=== PATIENT | female | born 1945 | race Caucasian/White ===

== ENCOUNTER → 2020-11-23 11:56 | Outpatient (CLI) | payer MEDICARE, OTHER, SELFPAY ==
[2020-11-23 14:10] LABS: COVID19 -Nasal RAPID Negative (Negative)
== END ==
PROVIDERS: PCP Family Medicine; Visit Provider Nurse Practitioner
DX: Z01.812 Encounter for preprocedural laboratory examination (principal); Z20.822 Contact with and (suspected) exposure to COVID-19
CPT/HCPCS: 87635; C9803

== ENCOUNTER 2020-11-27 09:01 | Inpatient (IN) | payer MEDICARE, OTHER, SELFPAY ==
[2020-11-20 10:23] VITALS: BMI 20.1
[2020-11-26] VITALS (16 sets, daily range): BP systolic 103–144; BP diastolic 55–87; PULSE 77–98; RESP 9–25; TEMP 36.1–36.6; O2SAT 2–100; BMI 20.1
--- NOTE | 2020-11-26 09:11 | DI.RAD.S_ITS ---
PROCEDURE: XR KNEE RT 1TO2V INDICATIONS: postop prosthesis placement TECHNIQUE: 2 view(s) of the knee acquired. COMPARISON: None. FINDINGS: Bones: Patient is status post knee joint arthroplasty. Hardware components are in expected positions. Visualized bony structures are intact. Soft tissues: Overlying postoperative changes are noted. IMPRESSION: Postop changes from right total knee arthroplasty with anatomic right knee alignment. Dictated by: Devon Albert M.D. on 11/26/2020 at 15:11 Approved by: Devon Albert M.D. on 11/26/2020 at 15:11
[2020-11-26] MEDS: CELECOXIB 200 MG CAPSULE PO (10:00)
[2020-11-26] MEDS: PREGABALIN 75 MG CAPSULE PO (10:00)
[2020-11-26] MEDS: ACETAMINOPHEN 325 MG TABLET 975 MG PO (10:01)
--- NOTE | 2020-11-26 10:09 | PM.PREOP ---
Pre-operative Note COVID-19 COVID-19 status: Negative Result date/Date tested (Pos, Neg/Pending): 11/23/20 Interval Note History & Physical reviewed/Exam performed by Physician: Yes Changes to H&P: No
[2020-11-26] MEDS: LACTATED RINGERS 1,000 ML 42 ML IV ×2 (10:17→11:49)
--- NOTE | 2020-11-26 10:17 | PM.OP.1 ---
Operative Date/Time/Diagnoses Date of procedure: 11/26/20 Time of procedure: 12:16 Pre-op diagnosis: Right knee osteoarthritis Post-op diagnosis: same Procedure & Clinicians Procedure: Right total knee replacement Same procedure as scheduled: Yes Indications: The patient has had progressively worsening right knee pain with radiographic changes consistent with arthritis. Non-operative management has failed and the patient has requested total knee replacement. The risks, benefits and alternatives to surgery were discussed with the patient prior to proceeding. Risks discussed included, but were not limited to, failure to relieve pain, stiffness, infection, nerve damage, deep venous thrombosis, pulmonary embolism, stroke, coma, heart attack, permanent paralysis and , as well as the potential need for eventual revision of the prosthetic. Surgeon: Kayden Land Stroke Coordinator: Young Shipley Click Yes if Unassisted: No Anesthesia Type: General, Spinal and Local Operative Notes Closure Type: primary Specimen(s): none sent Prosthetic devices, grafts, tissues, transplants, or devices: Implants used in this procedure were manufactured by the [employer] and [employer] and included the BCS II Journey total knee replacement with a size 4 right cobalt chromium femur, a size 3 right non porous tibial base plate, a 10 mm cross-linked polyethylene insert and a 32 mm oval Shirley II patellar component. Applied: implant(s) Estimated Blood Loss (mL): 25 Blood products transfused: none Tourniquet time (min): 46 Procedure in detail: The patient was seen in the pre-operative area, where the patient identified the right knee as the operative site and this was marked with my initials. The patient received pre-operative antibiotics, and was taken to the operating room and placed on the operative table in the supine position. After satisfactory anesthesia, a multimedia instructional designer out was performed. The right leg was encircled with a tourniquet about the proximal thigh, and the leg was prepared from the toes to the tourniquet with ChloraPrep in the usual fashion and draped through sterile drapes. The leg was elevated and exsanguinated with Eschmark bandage and the tourniquet inflated to 250 mmHg pressure. The knee was approached through an approximately 18 cm incision centered over the patella and carried into the knee through a medial parapatellar arthrotomy. The anterior osteophytes and soft tissues were removed. The rotational landmarks of Riverside's line and the transepicondylar axis were marked on the femur with electrocautery, and intramedullary guide holes for the femur and tibia were created. The distal femoral cut was made in 6 degrees of valgus using the intramedullary guide at the primary cut setting. The proximal tibial cut was then made using the intramedullary guide, taking 9 mm of bone off the less involved side. The extension gap was checked and the rotation of the femoral component confirmed with the gap balancing system. The anterior, posterior and chamfer cuts were then made. The posterior osteophytes and soft tissues were then removed. The posterior capsule was injected with part of a mixture of 60 ml 0.25% Marcaine mixed with 20 ml Exparel and 4 mg of morphine for post-operative pain control. The remainder of this mixture was injected into the capsule and subcutaneous tissues during cement curing. The tibia was prepared with the rotation set by an extra medullary guide. Trial tibial and femoral components were then placed and the intercondylar notch cut through the femoral trial. Range of motion was 0-135 degrees, with good stability throughout the range. The patella was then cut to accommodate the patellar prosthetic. There was no need for a lateral release. The trials were then removed, and the femoral hole plugged with a bone plug. The bone was prepared with pulsatile lavage, and dried with a sponge. Cement was applied and the final prosthetics placed. Excess cement was removed during and after cement curing. After confirming there was no extruded cement posteriorly, the final tibial insert was placed. The knee was copiously irrigated and the tourniquet deflated. Hemostasis was obtained. The capsule was closed with interrupted # 2 polyester suture. The subcutaneous layer was closed with 3-0 Vicryl, and the skin with a running 3-0 V-Lock suture and SteriStrips. An Aquacel Ag dressing was applied and the patient was taken to recovery having tolerated the procedure well. Complications: none Post-operative Condition: stable Disposition: PACU Plan for aftercare: The patient will be maintained on a standard total knee replacement protocol with weight bearing as tolerated. The patient will receive aspirin and sequential compression devices for DVT prophylaxis. The patient will be discharged home when safe for the home environment.
[2020-11-26] MEDS: CEFAZOLIN 1 GM VIAL 2 GM IV (10:45)
[2020-11-26] MEDS: TRANEXAMIC ACID 1,000 MG VIAL 1000 MG INJ (10:49)
--- NOTE | 2020-11-26 10:59 | SUR.OPER ---
Supine on padded OR bed. Pillow under head, arms secured on padded armboards <90 degree abduction. Safety belt across torso. Non-operative leg secured with tape over blanket over lower leg. Operative leg secured in DeMayo/Andi/Nathe positioner.
--- NOTE | 2020-11-26 11:01 | PC.NURSE ---
Day shift: Pt not on AC unit at this time.
[2020-11-26] MEDS: BUPIVACAINE LIPOSOME 266 MG/20 ML VIAL INJ (11:10)
[2020-11-26] MEDS: MORPHINE 4 MG/ML INJ INJ (11:11)
[2020-11-26] MEDS: EPINEPHrine 1 MG/ML 0.3 MG INJ (11:13)
[2020-11-26] MEDS: BUPIVACAINE 0.25% (PF) VIAL 60 ML INJ (11:14)
[2020-11-26] MEDS: fentaNYL 100 MCG/2 ML INJ IV ×2 (12:32→12:38)
[2020-11-26] MEDS: LORazepam 2 MG/ML INJ 0.25 MG IV (12:42)
[2020-11-26] MEDS: HYDROMORPHONE 2 MG INJ IV ×4 (12:46→13:12)
[2020-11-26] MEDS: OXYCODONE/ACETAMINOPHEN 5/325 TABLET 1 TAB PO (13:19)
--- NOTE | 2020-11-26 14:18 | SUR.PHASEI ---
1400 patient soon after surgery was done was writhing and crying in pain. very uncomfortable and uneasy. Given ativan, fentanyl, dilaudid and percocet. It helped with the pain, but still ststed until the end she felt achy and uneasy. VSS and circulation good. Taken to the floor
[2020-11-26] MEDS: LACTATED RINGERS 1,000 ML 100 ML IV (14:27)
[2020-11-26] MEDS: ATORVASTATIN 20 MG TABLET 80 MG PO (21:04)
[2020-11-26] MEDS: METFORMIN XR 500 MG TABLET 750 MG PO (21:04)
[2020-11-26] MEDS: DOCUSATE 100 MG CAPSULE PO (21:06)
[2020-11-26] MEDS: ASPIRIN EC 81 MG TABLET PO (21:06)
[2020-11-26] MEDS: ACETAMINOPHEN 325 MG TABLET 650 MG PO (21:07)
[2020-11-26] MEDS: OXYCODONE IR 5 MG TABLET PO ×2 (21:09→23:55)
[2020-11-27] VITALS (7 sets, daily range): BP systolic 111–135; BP diastolic 65–73; PULSE 79–96; RESP 13–18; TEMP 36.2–36.6; O2SAT 93–99
[2020-11-27] MEDS: HYDROMORPHONE 0.5 MG INJ 0.2 MG IV (01:29)
[2020-11-27] MEDS: OXYCODONE IR 10 MG TABLET PO (03:13)
[2020-11-27] MEDS: ZOLPIDEM 5 MG TABLET 10 MG PO ×2 (03:16→21:07)
[2020-11-27 08:06] LABS: Hemoglobin 12.3 g/dL (12.0-16.0)
--- NOTE | 2020-11-27 09:02 | PM.PNPO.1 ---
Subjective Subjective Date Patient Seen: 11/27/20 Time Patient Seen: 09:02 Interval history: The patient is somewhat confused this morning intermittently forgetting whether she has had surgery. She is concerned about going home due to her sister having pneumonia and her son recently being diagnosed with cancer. The 2 of them were supposed to help her in her postoperative recovery. Exam Vital Signs (past 8 hours): - 11/27/20 03:36 11/27/20 07:40 11/27/20 08:10 Temperature 97.1 F L 97.2 F L Pulse Rate 79 80 88 Respiratory Rate 18 18 16 Blood Pressure 111/73 130/67 Pulse Oximetry 97 93 97 Oxygen Delivery Method Room Air Oxygen Flow Rate 0 Narrative Exam Narrative: Right knee wound is dressed with no drainage on the bandage. Calf is soft. Light touch and motion are intact in the right lower extremity. Objective Labs Result Diagrams: 11/27/20 07:25 Labs: Laboratory Results - last 24 hr 11/27/20 07:25 Hgb 12.3 Hct 37.0 PFSH Medical History (Updated 11/20/20 @ 11:17 by Justine Ariza RN) Acid reflux Anxiety Arthritis Diabetes Dislocation of right shoulder joint Easy bruisability HLD (hyperlipidemia) HTN (hypertension) Hypothyroid Osteoarthritis Thin skin Surgical History (Updated 11/20/20 @ 11:17 by Justine Ariza RN) History of bladder surgery History of hysterectomy History of lumbar fusion History of surgery (~2005) Hx of bilateral cataract extraction Hx of cholecystectomy Hx of fusion of cervical spine Hx of heart artery stent (~2010) Hx of repair of right rotator cuff Hx of tonsillectomy S/P epidural steroid injection Social History household members: spouse and children Smoking Status: Never smoker alcohol intake: current Assessment & Plan Post-op Postoperative Procedures: Procedures Operation Date: 11/26/20 11:15 Actual Procedure Side Surgeon p Total Knee Arthroplasty Right Kayden Land MD Postoperative day: 1 Postoperative status: doing well and other (Confusion postoperatively) Postoperative status narrative: She is stable postoperatively from the standpoint of surgery. She does have confusion this morning. Postoperative plan: routine post-op care and ambulate Postoperative plan narrative: We will admit her as an inpatient formally. We will monitor her mental status. We will have her see Physical therapy today and tomorrow morning and potentially she will be able to be discharged tomorrow. Time Spent With Patient Time with patient: less than 15 minutes
[2020-11-27] MEDS: LORazepam 1 MG TABLET PO (09:10)
[2020-11-27] MEDS: METFORMIN XR 500 MG TABLET 750 MG PO ×2 (09:10→21:05)
[2020-11-27] MEDS: LEVOTHYROXINE 75 MCG TABLET PO (09:10)
[2020-11-27] MEDS: ASPIRIN EC 81 MG TABLET PO ×2 (09:10→21:05)
[2020-11-27] MEDS: DOCUSATE 100 MG CAPSULE PO ×2 (09:11→21:06)
[2020-11-27] MEDS: lisinopriL 20 MG TABLET PO (09:11)
[2020-11-27] MEDS: ACETAMINOPHEN 325 MG TABLET 650 MG PO ×3 (09:11→21:04)
--- NOTE | 2020-11-27 09:20 | PT.IIE ---
Current Diagnoses Unilateral primary osteoarthritis, right knee (11/26/20) Surgery Performed Operation Date: 11/26/20 11:15 Actual Procedures p Total Knee Arthroplasty(Right) - Kayden Land MD Medical History (Last Updated 11/20/20 @ 11:17 by Justine Ariza RN) Acid reflux Anxiety Arthritis Diabetes Dislocation of right shoulder joint Easy bruisability HLD (hyperlipidemia) HTN (hypertension) Hypothyroid Osteoarthritis Thin skin Physical Therapy Inpatient Evaluation/Re-Eval M1 PT/OT-IP Prior Functional Status Start: 11/27/20 11:59 Freq: NEEDED Status: Active Protocol: Document 11/27/20 09:20 AB (Rec: 11/27/20 12:41 AB [id number]) Medical Review Prior Functional Status Medical History Reviewed Yes Communication able to make needs known; with confusion Mobility and Gait pt stated that she is modified independent with all mobilities and ambulation without AD Social History Household Members spouse,children Living Arrangements House Number of Floors (Floors) One Floor Number of Stairs To Enter/Railing? ramp to enter Home Environment High Toilet,Tub/Shower Home Equipment Front Wheel Walker,Tub Transfer Bench,Hand Held Shower,Grab Bars Near Toilet Employment Status Retired M2 PT-IP Current Condition Start: 11/27/20 11:59 Freq: NEEDED Status: Active Protocol: Document 11/27/20 09:20 AB (Rec: 11/27/20 12:41 AB [id number]) Physical Therapy Current Condition Current Condition Evaluation Date 11/27/20 Treatment Diagnosis s/p R TKA; difficulty in walking Onset Date 11/26/20 Precautions Other Precautions falls Weight Bearing Status Weight Bearing Status Weight Bear as Tolerated Allowed Weight Bearing Amount (enter % RLE WBAT or #) (%) M3 PT-IP Subjective Start: 11/27/20 11:59 Freq: NEEDED Status: Active Protocol: Document 11/27/20 09:20 AB (Rec: 11/27/20 12:41 AB [id number]) Subjective Physical Therapy Visit Type Type Initial Evaluation Visit Start Time 09:20 Visit Stop Time 10:05 Total Visit Minutes 45 Number of SNOW REMOVAL/PLOWING Visits 0 Physical Therapy Visit Comments Patient Comments requesting to use the toilet Therapy Pain Assessment Pain When Pain Assessed During Mobility Location Right Knee Scale Used pain scale nto stated Pain Behaviors Guarding,Holding Area M4 PT-IP Mobility and Gait Start: 11/27/20 11:59 Freq: NEEDED Status: Active Protocol: Document 11/27/20 09:20 AB (Rec: 11/27/20 12:41 AB [email or web address]) PT-Bed Mobility Assessment Supine to Sit Supine to Sit Standby Assistance Sit to Supine Sit to Supine Standby Assistance PT-Transfer Assessment Sit to and From Stand Sit to and from Stand Contact Guard Assistance,1 Person Assistance,Use of Upper Extremities Equipment Transfer Assistive Device Gait Belt,Front Wheeled Walker Orthotic/Prosthetic Devices or Brace: No Transfers Transfer Destination Toilet Transfer Technique ambulated using FWW Transfer Ability Level of Assist Contact Guard Assistance,Use of Upper Extremities Comments Mobility Comments pt midway off bed and stated that she needs to use the toilet. completed sit to stand CGA and ambulated to the toilet with min A and cues using fWW. pt with confusion and can be impulsive. initially has RLE off the floor and was hoping during ambulation. pt educated on safety and weight bearing on RLE. pt completed sit to stand from the toilet CGA and ambulated to the sink using FWW CGA. pt was able to maintain standing CGA and cues while completing handwashing. ambulated to the chair. pt agreed to ambulate more in the hallway. completed sit to stand from the chair SBA and ambulated in the hallway using FWW 100 ft SBA to occasionally CGA for safety and cues. pt requested to go back to bed. completed sit to supine SBA. positioned pt on the bed. call light and table placed within reach. Gait Assessment Gait Gait Assistance Required: Standby Assistance,Contact Guard Assist,Minimum Assistance Distance (Feet) 100 Able to Maintain Weight Bearing Status Yes During Gait Assistive Devices Assistive Device Gait Belt,Front Wheeled Walker Orthotic/Prosthetic Devices or Brace: No Gait Deviations General Gait Pattern Antalgic,Decreased Stride Length,Decreased Feet Clearance,Step-to Gait Factors Limiting Gait Function Factors Limiting Gait Function Decreased Activity Tolerance, Decreased Strength,Difficulty Following Directions,Limited Range of Motion,Pain,Poor Balance,Poor Safety Awareness Comments Gait Comments pls refer to mobility section for details PT-Balance Assessment Sitting Balance and Reactions Static Sitting Balance Ability Good Dynamic Sitting Balance Ability Good Standing Balance and Reactions Static Standing Balance Ability Fair Dynamic Standing Balance Ability Fair Device Used FWW M5 PT-IP Objective Assessments Start: 11/27/20 11:59 Freq: NEEDED Status: Active Protocol: Document 11/27/20 09:20 AB (Rec: 11/27/20 12:41 AB [id number]) Orientation Orientation/Cognition Level of Alertness Confusional State Orientation Name,Situation Safety Awareness Decreased Safety Awareness Gross Range of Motion Lower Extremity ROM Assessment Right Impaired Impairments R knee flexion: ~ 90 deg Strength Lower Extremity Strength Assessment Right Impaired Hip 4-/5 Knee 3+/5 Sensation Assessment Sensation Gross Sensation WNL Muscle Tone Muscle Tone WNL Yes M6 PT-IP Treatment Start: 11/27/20 11:59 Freq: NEEDED Status: Active Protocol: Document 11/27/20 09:20 AB (Rec: 11/27/20 12:41 AB [id number]) Physical Therapy Treatment Education Education Provided Precautions,Weight Bearing Status,Post-Op Packet,Safety M7 PT-IP Assessment and Plan Start: 11/27/20 11:59 Freq: NEEDED Status: Active Protocol: Document 11/27/20 09:20 AB (Rec: 11/27/20 12:41 AB [email or web address]) PT Summary Assessment and Plan Potential Rehabilitation Potential Good Status of Condition at Evaluation Stable Summary Impairments Pain,ROM,Strength,Balance, Coordination,Sensation,Tone, Cognition,Bed Mobility, Transfers,Gait,Activity Tolerance Assessment Summary pt requiring SBA to CGA with mobility using FWW and plans to go home wtih spouse to assist her. will continue to assess progress. pt stated that she has outpt PT scheduled. Goals Bed Mobility Goal Independent Transfer Goal Independent,Front Wheeled Walker Gait Goal Independent,Front Wheel Walker Gait Distance 200 Days to Meet Goals 5 Frequency of Treatment Frequency Of Treatment Twice a Day Treatment Plan Physical Therapy Treatment Plan Bed Mobility Training,Transfer Training,Gait Training, Therapeutic Exercise,Balance Retraining,Post Op Education, Discharge Planning,Hot or Cold Pack,Neuromuscular Re-ed, Coordination Retraining,Manual Therapy Other Recommendations and Next Treatment ambulation Focus Precautions Other Precautions falls; RLE WBAT Recommendations To Nursing Amount of Assist Needed 1 Person Assist Discharge Recommendations PT Discharge Recommendations Home with Assistance, Outpatient PT Transportation Needs at Discharge Private Vehicle
--- NOTE | 2020-11-27 09:42 | PC.NURSE ---
Day shift: Per Dr Land Pt given Ativan PO per APR with her AM meds. Pt having anxiety this AM and confused about the specifics of her surgery yesterday. She stated The Dr said my surgery was going to be today. This was said after Dr Land talked w/ Pt this AM. This financial writer discussed with Dr Land that Pt may need CIWA protocol put in place but not at this time. Will continue to monitor Pt and call Dr Land if CIWA is needed. Pt OOB w/ PT at this time and will be sitting in chair w/ chair alarm in place. Call light in reach.
[2020-11-27] MEDS: CELECOXIB 200 MG CAPSULE PO (10:44)
--- NOTE | 2020-11-27 14:46 | PT.IPTN ---
Current Diagnoses Unilateral primary osteoarthritis, right knee (11/27/20) Surgery Performed Operation Date: 11/26/20 11:15 Actual Procedures p Total Knee Arthroplasty(Right) - Kayden Land MD Physical Therapy Treatment Note M2 PT-IP Current Condition Start: 11/27/20 11:59 Freq: NEEDED Status: Active Protocol: Document 11/27/20 09:20 AB (Rec: 11/27/20 12:41 AB [id number]) Physical Therapy Current Condition Current Condition Evaluation Date 11/27/20 Treatment Diagnosis s/p R TKA; difficulty in walking Onset Date 11/26/20 Precautions Other Precautions falls Weight Bearing Status Weight Bearing Status Weight Bear as Tolerated Allowed Weight Bearing Amount (enter % RLE WBAT or #) (%) M3 PT-IP Subjective Start: 11/27/20 11:59 Freq: NEEDED Status: Active Protocol: Document 11/27/20 14:16 KS (Rec: 11/27/20 15:54 KS [id number]) Subjective Physical Therapy Visit Type Type Treatment Note Visit Start Time 14:16 Visit Stop Time 14:46 Total Visit Minutes 30 Number of MATERIALS ASSISTANT Visits 1 Physical Therapy Visit Comments Patient Comments Pt agreeable to PT M4 PT-IP Mobility and Gait Start: 11/27/20 11:59 Freq: NEEDED Status: Active Protocol: Document 11/27/20 14:16 KS (Rec: 11/27/20 15:54 KS [id number]) PT-Bed Mobility Assessment Supine to Sit Supine to Sit Standby Assistance Sit to Supine Sit to Supine Standby Assistance PT-Transfer Assessment Sit to and From Stand Sit to and from Stand Contact Guard Assistance,1 Person Assistance,Use of Upper Extremities Equipment Transfer Assistive Device Gait Belt,Front Wheeled Walker Orthotic/Prosthetic Devices or Brace: No Transfers Transfer Destination Toilet Transfer Technique ambulated using FWW Transfer Ability Level of Assist Contact Guard Assistance,Use of Upper Extremities Comments Mobility Comments Pt in bed upon arrival from therapy. Pt instructed and completed 1x10 bilateral LE excercises including ankle pumps, quad sets, glute sets and 1x5 heel slides and SLR. Pt then sup<>sit and scooted EOB SBA. CGA for sit<>stand w/ FWW. Pt then ambulated ~30 ft in hallway w/ FWW and CGA. Pt c/o fatigue and increased pain and requested to go back to room. Pt ambulated w/ decreased stride and foot clearance and step to pattern due to pain. After sitting in bed, pt requested to use toilet. CGA for sit<>stand and ~15ft ambulation to toilet. CGA for stand<>sit<>stand from toilet w/ use of grab bar. Pt ambulated ~15 ft back to bed w/ FWW and stand<>sit<>sup SBA . Pt left in bed w/ ice applied, SCDs on, bed alarm on , and all needs in reach. Gait Assessment Gait Gait Assistance Required: Standby Assistance,Contact Guard Assist,Minimum Assistance Distance (Feet) 60 Able to Maintain Weight Bearing Status Yes During Gait Assistive Devices Assistive Device Gait Belt,Front Wheeled Walker Orthotic/Prosthetic Devices or Brace: No Gait Deviations General Gait Pattern Antalgic,Decreased Stride Length,Decreased Feet Clearance,Step-to Gait Factors Limiting Gait Function Factors Limiting Gait Function Decreased Activity Tolerance, Decreased Strength,Difficulty Following Directions,Limited Range of Motion,Pain,Poor Balance,Poor Safety Awareness Comments Gait Comments pls refer to mobility section for details PT-Balance Assessment Sitting Balance and Reactions Static Sitting Balance Ability Good Dynamic Sitting Balance Ability Good Standing Balance and Reactions Static Standing Balance Ability Fair Dynamic Standing Balance Ability Fair Device Used FWW M5 PT-IP Objective Assessments Start: 11/27/20 11:59 Freq: NEEDED Status: Active Protocol: Document 11/27/20 09:20 AB (Rec: 11/27/20 12:41 AB [id number]) Orientation Orientation/Cognition Level of Alertness Confusional State Orientation Name,Situation Safety Awareness Decreased Safety Awareness Gross Range of Motion Lower Extremity ROM Assessment Right Impaired Impairments R knee flexion: ~ 90 deg Strength Lower Extremity Strength Assessment Right Impaired Hip 4-/5 Knee 3+/5 Sensation Assessment Sensation Gross Sensation WNL Muscle Tone Muscle Tone WNL Yes M6 PT-IP Treatment Start: 11/27/20 11:59 Freq: NEEDED Status: Active Protocol: Document 11/27/20 14:16 KS (Rec: 11/27/20 15:54 KS [id number]) Physical Therapy Treatment Exercises Exercises Ankle Pumps,Gluteal Sets,Quad Sets,Heel Slides,Straight Leg Raises Education Education Provided Precautions,Weight Bearing Status,Post-Op Packet,Safety M7 PT-IP Assessment and Plan Start: 11/27/20 11:59 Freq: NEEDED Status: Active Protocol: Document 11/27/20 14:16 KS (Rec: 11/27/20 15:54 KS [id number]) PT Summary Assessment and Plan Potential Rehabilitation Potential Good Status of Condition at Evaluation Stable Summary Impairments Pain,ROM,Strength,Balance, Coordination,Sensation,Tone, Cognition,Bed Mobility, Transfers,Gait,Activity Tolerance Assessment Summary Pt continues to require SBA to CGA for all mobility, transfers, and ambulation. Able to tolerate LE strengthening exercises well. Demonstrated safe use of FWW. Will benefit from continued skilled therapy to improve tolerance for activity and gait. Goals Bed Mobility Goal Independent Transfer Goal Independent,Front Wheeled Walker Gait Goal Independent,Front Wheel Walker Gait Distance 200 Days to Meet Goals 5 Frequency of Treatment Frequency Of Treatment Twice a Day Treatment Plan Physical Therapy Treatment Plan Bed Mobility Training,Transfer Training,Gait Training, Therapeutic Exercise,Balance Retraining,Post Op Education, Discharge Planning,Hot or Cold Pack,Neuromuscular Re-ed, Coordination Retraining,Manual Therapy Other Recommendations and Next Treatment ambulation Focus Precautions Other Precautions falls; RLE WBAT Recommendations To Nursing Amount of Assist Needed 1 Person Assist Discharge Recommendations PT Discharge Recommendations Home with Assistance, Outpatient PT Transportation Needs at Discharge Private Vehicle
--- NOTE | 2020-11-27 16:09 | CM.DANOTE ---
DCP/Assessment: Reviewed chart. Patient is a 75yr old female admitted to [facility] for elective right TKA performed on 11-26-[address] Land. PCP listed is Fareed Stoenr. Primary payor is 1)Medicare 2)[facility]. Met with patient explained CM/SW role. Patient reports that she hopes to d/c home tomorrow. Patient indicates that she has all needed DME and outpatient therapy is arranged. P: Home when stable. JENAE Granda Discharge Planning/Care Management CM Discharge Assessment Start: 11/27/20 16:06 Freq: Status: Active Protocol: Document 11/27/20 16:06 KJS (Rec: 11/27/20 16:09 KJS [id number]) Discharge Planning Assessment Assigned Manpower Development Specialist Manager JENAE Granda Contact Information Chetan Ring (spouse) # [phone] Advance Directives? No History Provided By Patient,Medical Record Prior Living Arrangements House Household Members spouse,children Type of transporation used prior to Drives own vehicle admit Independent with ADL's Yes Is patient alert and oriented? Yes Caregiver for Another No DME Already Rented / Owned Bath Bench,FWW / Walker,Cane Barriers to Discharge No Discharge Plan Home Transportation Arrangement Family to provide transport. Referrals Initiated None needed Whiteboard Updated in Patient Room with Yes name and ext. # of Manpower Development Specialist Manager Review Status In Process Next Review Type Continued Stay Review Pre-Anesthesia Assessment Start: 11/20/20 10:23 Freq: Status: Complete Protocol: Document 11/20/20 10:23 CAB (Rec: 11/20/20 11:33 CAB [id number]) Pre-Anesthesia Assessment Preferred Name Luis Patient Information Reviewed Via Phone Assessment Assessment Completed With Patient Comment Labs done per pt, not here, EKG 11/21/20, COVID screen @ [facility] 11/23/20 Primary Care Provider Fareed Stoner Medical Clearance Received Yes Seen Specialist in Last 12 Months Yes Specialist Seen Orthopedist Comment PCP clearance scanned Primary Language Vietnamese Gift Manager Required No Height 167.64 cm Weight 56.699 kg Body Mass Index (BMI) 20.1 Hearing Ability Normal Visual Assist None Dentition Type Teeth, Missing,Full- Upper Barriers to Learning None Hx Anesthesia Reactions Yes: It takes me a while to get into, they have to give me more Hx Family Anesthesia Reaction No Hx Malignant Hyperthermia No Hx Blood Transfusions No Anesthesia Review Requested No alcohol intake current alcohol intake frequency a few times a month Smoking Status Never smoker Substance Use Type does not use Pain Present Pain Reported Musculoskeletal Symptoms Abnormal Gait,Back Pain, Difficulty Walking,Joint Pain History of Falling (Recent or History of Yes ) Patient is completely paralyzed or No completely immobile Mental Status Oriented to own ability Is patient on oxygen? No Does patient have PEREZ/SOB No Hx Sleep Apnea No Currently Taking a Beta Veda No Can You Climb a Flight of Stairs Without Yes SOB Hx Chest Pain No Hx SOB No Anti-Coagulant Therapy No Has a Dry Food Products Mixer No Cardiac Testing No Hx Pacemaker/ICD No Pacemaker Rep Required? No Diet Type At Home Regular dysphagia No Gastrointestinal Symptoms Reflux Urinary Catheter Present No Hx Urinary Self Catheterization No Diabetes Yes: Pt checks blood sugar twice a day Patient No Lactating No Presence of External or Internal Medical Yes: Cheek, cervical/lumbar, Devices bilat IOLs, cardiac stent Have you had any close contact with No someone diagnosed with COVID-19? Received a COVID vaccine? Yes: Moderna Received all doses? Yes Marital Status Lives With spouse,children Prior Living Arrangements House Support System Family,Spouse Does the Patient Have Assistance After Yes Surgery Patient Discharge Plan Description Return Home Comment Pt advised overnight length of stay per surgeon Feels Safe in Current Environment Yes Been Physically Hurt or Threatened By a No Person in Current Environment Do you have thoughts of harming yourself None or others? Are you currently considering suicide? No Do you have a plan to hurt yourself or No Plan others? Do You Have Any Spiritual Beliefs That No May Affect Your HC Choices? Do You Have Any Cultural Practices That No May Affect Your HC Choices? Comment Scientology Who Can We Speak to About Patient's Care Family, friends Identifying Code for Release of Patient Declines to issue Information Health Care Proxy/Next of Kin Chetan () Health Care Proxy Emergency Contact Name Chetan () Emergency Contact Advance Directives? No Power of Senior Software Engineer Analytics Yes Power of Senior Software Engineer Analytics Name Chetan () Power of Senior Software Engineer Analytics PAC Instructions Diabetes instructions,Do not shave/clip surgical site, Durable medical equipment, Medications to take/avoid, Nasal antibiotic,No ETOH/ petroleum product on skin DOS, NPO,Post-op transportation,Pre -surgical wash,Sturdy shoes/ comfortable clothes,Do not bring valuables and remove jewelry
[2020-11-27] MEDS: OXYCODONE IR 5 MG TABLET PO (16:14)
--- NOTE | 2020-11-27 16:54 | PC.NURSE ---
Addendum entered by Ophelia Rose R.N. 11/27/20 22:06: Pt rested this evening, appears in better spirits' SpO2 95% RA HL intact/patent CBG 258 & 291, pt takes metformin at HS . Satisfactory post op course. Call light w/in reach, bed alarm on for pt safety. Continue w/plan of care. Original Note: Pt appears uncomfortable, med w/po meds for discomfort. Eddie wrap tight & bunched up, eddie reovoved, Aquacell dsg CDI SpO2 97% RA HL right wrist intact/patent. Assisted to BSC Call light w/in reach, bed alarm on for pt safety.
[2020-11-27] MEDS: ATORVASTATIN 20 MG TABLET 80 MG PO (21:06)
[2020-11-28 00:49] VITALS: BP 162/88; PULSE 94; RESP 18; TEMP 36.3; O2SAT 98
[2020-11-28] MEDS: OXYCODONE IR 10 MG TABLET PO (01:19)
[2020-11-28] MEDS: OXYCODONE IR 5 MG TABLET PO ×2 (03:39→11:50)
[2020-11-28] MEDS: HYDROMORPHONE 2 MG TABLET PO (04:21)
[2020-11-28] MEDS: HYDROMORPHONE 0.5 MG INJ 0.2 MG IV (06:01)
[2020-11-28] MEDS: LEVOTHYROXINE 75 MCG TABLET PO (06:02)
[2020-11-28 06:04] VITALS: BP 150/72; PULSE 89; RESP 17; TEMP 36.8; O2SAT 98
[2020-11-28 07:18] VITALS: BP 141/76; PULSE 89; RESP 16; TEMP 36.3; O2SAT 97
--- NOTE | 2020-11-28 07:21 | PM.DS.1 ---
History of Present Illness History of Present Illness Date Patient Seen: 11/28/20 Time Patient Seen: 07:21 Chief complaint: RT TKA *OPB* Narrative: History and physical is contained in the chart previously completed note. Please refer to that note for this information. Discharge Providers Provider Date of admission: 11/27/20 09:01 Discharge Date: 11/28/20 Primary care physician: Fareed Stoner MD Consults: 11/26/20 14:00 Consult to Discharge Planning Routine Comment: Consult to Physical Therapy Evaluate & Treat Comment: Physician Instructions: postop TKA protocol 11/26/20 14:38 Consult to Respiratory Therapy Evaluate & Treat Comment: Physician Instructions: Evaluate and treat Discharge provider: Kayden Land MD Summary Hospital Course Discharge Diagnosis: 1. Right knee osteoarthritis 2. Postoperative delirium Hospital Course: The patient was admitted to the hospital and taken directly to the operating room on November 26, 2020 where she underwent a right total knee replacement without complication. On postoperative day 1 she was moderately confused, forgetting that she had had surgery the day before. She was observed overnight and her mental status began to clear. On postoperative day 2 she had made some progress with physical therapy and at the time of this dictation the plan is she will be discharged after additional physical therapy later today. Status at Discharge Cognitive/behavioral status at discharge: at baseline, oriented Functional status at discharge: uses cane/walker Overall status at discharge: patient is progressing back to baseline Time Spent with Patient Time spent: Less than 30 minutes Exam Vital Signs (past 8 hours): - 11/28/20 00:49 11/28/20 06:04 Temperature 97.4 F L 98.3 F Pulse Rate 94 H 89 Respiratory Rate 18 17 Blood Pressure 162/88 H 150/72 H Pulse Oximetry 98 98 Oxygen Delivery Method Room Air Oxygen Flow Rate 0 Narrative Exam Narrative: Right knee wound is dressed with no drainage on the bandage. There is bruising surrounding the surgical incision as anticipated. Calf is soft. Light touch and motion are intact in the right lower extremity. Objective Labs Result Diagrams: 11/27/20 07:25 Labs: Laboratory Results - last 24 hr 11/27/20 07:25 Hgb 12.3 Hct 37.0 PFSH Medical History (Updated 11/20/20 @ 11:17 by Justine Ariza RN) Acid reflux Anxiety Arthritis Diabetes Dislocation of right shoulder joint Easy bruisability HLD (hyperlipidemia) HTN (hypertension) Hypothyroid Osteoarthritis Thin skin Surgical History (Updated 11/20/20 @ 11:17 by Justine Ariza RN) History of bladder surgery History of hysterectomy History of lumbar fusion History of surgery (~2005) Hx of bilateral cataract extraction Hx of cholecystectomy Hx of fusion of cervical spine Hx of heart artery stent (~2010) Hx of repair of right rotator cuff Hx of tonsillectomy S/P epidural steroid injection Social History household members: spouse and children Smoking Status: Never smoker alcohol intake: current Discharge Assessment & Plan Assessment and Plan Assessment: Stable postoperative day 2 status post right total knee replacement with clearing of temporary postoperative delirium. Plan of Treatment: Physical therapy today likely 2 sessions morning and afternoon then discharged to home. Follow-up in the office in 2 weeks. Discharge prescriptions for oxycodone have been sent to the pharmacy. She has also been instructed in the use of low-dose aspirin for DVT prophylaxis and Tylenol for pain relief. She is already on Celebrex at home for pain relief as well. Discharge Plan Discharge Plan Patient Disposition: Home Discharge orders & Medications Prescriptions: New acetaminophen 325 mg Tablet 650 mg PO TID 30 Days Qty: 180 RF: 0 aspirin 81 mg Tablet,Delayed Release (Dr/Ec) 81 mg PO BID 42 Days Qty: 84 RF: 0 oxycodone 5 mg Tablet 5 mg PO Q4H PRN (Reason: Pain, Moderate (4-6)) Qty: 40 RF: 0 Continued celecoxib [Celebrex] 200 mg Capsule 200 mg PO BID PRN (Reason: Pain) RF: 0 lisinopril 20 mg Tablet 20 mg PO DAILY RF: 0 levothyroxine 75 mcg Tablet 75 mcg PO DAILY RF: 0 glipizide 2.5 mg Tablet Extended Release 24hr 2.5 mg PO DAILY RF: 0 lorazepam 1 mg Tablet 1 mg PO DAILY PRN (Reason: Anxiety) RF: 0 zolpidem 10 mg Tablet 10 mg PO BEDTIME RF: 0 metformin 750 mg Tablet Extended Release 24 Hr 750 mg PO BID RF: 0 rosuvastatin 40 mg Tablet 40 mg PO DAILY RF: 0 nitrofurantoin 50 mg Capsule 50 mg PO 3XW RF: 0 Discontinued tramadol 50 mg Tablet 50 mg PO DAILY PRN (Reason: Pain) RF: 0 acetaminophen 500 mg Tablet 500 mg PO BID PRN (Reason: Pain) RF: 0 Follow up/Referrals: Shanda,Kayden M, MD [Physician] - 2 Weeks Fareed Stoner MD [Primary Care Provider] - Discharge Health Status Multidrug resistant organism: No MDRO Diet/Activity/Treatments Diet: Diet as Tolerated and Carb-consistent/Diabetic Activity: You may bear weight as tolerated on your right leg. Cold/Heat Therapy: You may apply ice for 15 minutes every hour to the right knee for pain relief. Skin/Wound/Dressing Care Report to your healthcare provider any signs of infection, such as:: chills, fever, night sweats, increased pain, unusual drainage and unusual redness Dressing: Leave the dressing intact until your postoperative follow-up. You may shower with the dressing in place. If the center strip of the dressing becomes saturated with either water or blood, please call the office to have it evaluated. Visit Report/Discharge Packet Instructions: DI for Knee Replacement, DI for Prescription Opioid Use Stand Alone Forms: Surgery Discharge Discharge Data Primary Care Provider: Fareed Stoner
[2020-11-28] MEDS: ACETAMINOPHEN 325 MG TABLET 650 MG PO (09:03)
[2020-11-28] MEDS: ASPIRIN EC 81 MG TABLET PO (09:03)
[2020-11-28] MEDS: lisinopriL 20 MG TABLET PO (09:03)
[2020-11-28] MEDS: DOCUSATE 100 MG CAPSULE PO (09:03)
[2020-11-28] MEDS: METFORMIN XR 500 MG TABLET 750 MG PO (09:23)
--- NOTE | 2020-11-28 11:14 | PT.IPTN ---
Current Diagnoses Unilateral primary osteoarthritis, right knee (11/27/20) Surgery Performed Operation Date: 11/26/20 11:15 Actual Procedures p Total Knee Arthroplasty(Right) - Kayden Land MD Physical Therapy Treatment Note M2 PT-IP Current Condition Start: 11/27/20 11:59 Freq: NEEDED Status: Discharge Protocol: Document 11/28/20 10:35 SP (Rec: 11/28/20 13:56 SP [id number]) Physical Therapy Current Condition Current Condition Evaluation Date 11/27/20 Treatment Diagnosis s/p R TKA; difficulty in walking Onset Date 11/26/20 Precautions Other Precautions falls; RLE WBAT Weight Bearing Status Weight Bearing Status Weight Bear as Tolerated Allowed Weight Bearing Amount (enter % RLE WBAT or #) (%) M3 PT-IP Subjective Start: 11/27/20 11:59 Freq: NEEDED Status: Discharge Protocol: Document 11/28/20 10:35 SP (Rec: 11/28/20 13:56 SP [id number]) Subjective Physical Therapy Visit Type Type Treatment Note Visit Start Time 10:35 Visit Stop Time 11:14 Total Visit Minutes 39 Notes completed caregiver training with assist required throughout tx. Number of CHIEF SUSTAINABILITY OFFICER Visits 2 Physical Therapy Visit Comments Patient Comments Pt agreeable to PT Patient Goals return home with spouse to assist Therapy Pain Assessment Pain When Pain Assessed During Mobility Pain Present Pain Present Pain Reported Location Right Knee Intensity 3 Scale Used Numeric (0 - 10) Pain Behaviors Facial Grimacing Pain Management Techniques Apply Cold,Distraction,Re- positioning,Timing of Activity with Medications M4 PT-IP Mobility and Gait Start: 11/27/20 11:59 Freq: NEEDED Status: Discharge Protocol: Document 11/28/20 10:35 SP (Rec: 11/28/20 13:56 SP [id number]) PT-Bed Mobility Assessment Supine to Sit Supine to Sit Standby Assistance Sit to Supine Sit to Supine Standby Assistance Scooting Scooting to Edge of Bed Standby Assistance PT-Transfer Assessment Sit to and From Stand Sit to and from Stand Contact Guard Assistance,1 Person Assistance,Use of Upper Extremities Equipment Transfer Assistive Device Gait Belt,Front Wheeled Walker Orthotic/Prosthetic Devices or Brace: No Transfers Transfer Destination Bed,Chair Transfer Technique ambulated using FWW Transfer Ability Level of Assist Contact Guard Assistance,1 Person Assistance,Use of Upper Extremities Comments Mobility Comments Pt seated in chair when arrived, education with on donning gait belt, sit>stand CGA with cues for proper hand placement push from chair and allowed WBAT, she demonstrates NWB- 25% initially into RLE standing and first few steps. Pt able to ambulate step to patterning further around room 30 ft CGA by and returned to L EOB, good side stepping EOB and reaching back slow descent to bed CGA, Sit<>supine SBA LLE hook under and support RLE during mobility, education on supine post- op LE exercises review w/ gait belt on RLE. SPT bed> chair CGA using fWW with improved hand placement with cue from . Pt is ok to return home with to asisst her 08/09 for safety reminders increase LE WB allowed, hand placement reminders. She is already set up with outpt ttherapy. Gait Assessment Gait Gait Assistance Required: Standby Assistance,Contact Guard Assist,Minimum Assistance Distance (Feet) 30 Able to Maintain Weight Bearing Status Yes During Gait Assistive Devices Assistive Device Gait Belt,Front Wheeled Walker Orthotic/Prosthetic Devices or Brace: No Gait Deviations General Gait Pattern Antalgic,Decreased Stride Length,Decreased Feet Clearance,Step-to Gait Factors Limiting Gait Function Factors Limiting Gait Function Decreased Activity Tolerance, Decreased Strength,Difficulty Following Directions,Limited Range of Motion,Pain,Poor Balance,Poor Safety Awareness Comments Gait Comments see mobility comments Stair Climbing Assessment Comments Stair Climbing Comments no stairs at home to assess. PT-Balance Assessment Sitting Balance and Reactions Static Sitting Balance Ability Good Dynamic Sitting Balance Ability Good Standing Balance and Reactions Static Standing Balance Ability Fair Dynamic Standing Balance Ability Fair Device Used FWW M5 PT-IP Objective Assessments Start: 11/27/20 11:59 Freq: NEEDED Status: Discharge Protocol: Document 11/27/20 09:20 AB (Rec: 11/27/20 12:41 AB [id number]) Orientation Orientation/Cognition Level of Alertness Confusional State Orientation Name,Situation Safety Awareness Decreased Safety Awareness Gross Range of Motion Lower Extremity ROM Assessment Right Impaired Impairments R knee flexion: ~ 90 deg Strength Lower Extremity Strength Assessment Right Impaired Hip 4-/5 Knee 3+/5 Sensation Assessment Sensation Gross Sensation WNL Muscle Tone Muscle Tone WNL Yes M6 PT-IP Treatment Start: 11/27/20 11:59 Freq: NEEDED Status: Discharge Protocol: Document 11/28/20 10:35 SP (Rec: 11/28/20 13:56 SP [id number]) Physical Therapy Treatment Exercises Exercises Ankle Pumps,Gluteal Sets,Quad Sets,Heel Slides,Short Arc Quads,Seated Knee Flexion/ Extension Knee ROM Measurement 10- 40 deg supine AAROM, 80 deg flexion seated in chair Education Education Provided Precautions,Weight Bearing Status,Post-Op Packet,Safety M7 PT-IP Assessment and Plan Start: 11/27/20 11:59 Freq: NEEDED Status: Discharge Protocol: Document 11/28/20 10:35 SP (Rec: 11/28/20 13:56 SP [id number]) PT Summary Assessment and Plan Potential Rehabilitation Potential Good Status of Condition at Evaluation Stable Summary Impairments Pain,ROM,Strength,Balance, Coordination,Sensation,Tone, Cognition,Bed Mobility, Transfers,Gait,Activity Tolerance Progress Towards Goals Progressing Toward Goals,Slow Progress due to Activity Tolerance Assessment Summary Pt continues to require CGA for all mobility, transfers, and ambulation in room distances using FWW with noted decreased RLE WB, improves with cuing allowed WBAT and safety reminders push from chair arms and reach back prior to sit for slow descent to chair, provided cue carryover. Able to tolerate LE strengthening exercises with assist therapist and use of gait belt on R foot. Demonstrated safe use of FWW. Pt is ok to return home with to assist her 08/09. Is set up with outpt therapy. Goals Bed Mobility Goal Independent Transfer Goal Independent,Front Wheeled Walker Gait Goal Independent,Front Wheel Walker Gait Distance 200 Days to Meet Goals 5 Frequency of Treatment Frequency Of Treatment Twice a Day Treatment Plan Physical Therapy Treatment Plan Bed Mobility Training,Transfer Training,Gait Training, Therapeutic Exercise,Balance Retraining,Post Op Education, Discharge Planning,Hot or Cold Pack,Neuromuscular Re-ed, Coordination Retraining,Manual Therapy Other Recommendations and Next Treatment gait, Le ex, safety techniques Focus during transfers, review WBAT RLE using fWW. Precautions Other Precautions falls; RLE WBAT Recommendations To Nursing Amount of Assist Needed 1 Person Assist Discharge Recommendations PT Discharge Recommendations Home with Assistance,Home with 08/09 Assist Available, Outpatient PT Transportation Needs at Discharge Private Vehicle
--- NOTE | 2020-11-28 13:31 | CM.DPC ---
DCP Discharge Home Per Ortho MD, pt is medically stable to d/c home today with no identified barriers to discharge. Per PT, pt doing very well and recommend safe d/c home with outpt PT and has DME needed. No identified barriers to discharge. Per RN, no concerns at this time and d/c instructions provided. Plan: Patient to d/c home via spouse POV and outpt PT and no SW needs at this time. JENAE Jenkins
== END 2020-11-28 12:00 | disposition home or self-care (01) | DRG 470 ==
LOC: OR 13:17 → AC 13:17
PROVIDERS: Admitting Provider Orthopaedic Surgery; PCP Family Medicine; Referring Provider Orthopaedic Surgery; Visit Provider Orthopaedic Surgery
PROC: 0SRC0JZ Replacement of Right Knee Joint with Synthetic Substitute, Open Approach (ICD-10-PCS; CPT 27447; principal; 2020-11-26 11:15)
DX: M17.11 Unilateral primary osteoarthritis, right knee (principal); R41.0 Disorientation, unspecified; M25.761 Osteophyte, right knee; I10 Essential (primary) hypertension; E03.9 Hypothyroidism, unspecified; E11.9 Type 2 diabetes mellitus without complications; F41.9 Anxiety disorder, unspecified; E78.5 Hyperlipidemia, unspecified; I25.10 Atherosclerotic heart disease of native coronary artery without angina pectoris; Z20.822 Contact with and (suspected) exposure to COVID-19; Z79.84 Long term (current) use of oral hypoglycemic drugs; Z95.5 Presence of coronary angioplasty implant and graft
CPT/HCPCS: 36415; 73560; 82962; 85014; 85018; 94762; 97110; 97116; 97161; 97530; C1776; C9290; J0171; J0690; J1100; J1170; J2060; J2250; J2270; J2274; J2405; J2704; J3010